=== PATIENT | female | born 1995 | race Caucasian/White ===

== ENCOUNTER 2022-03-22 17:10 | Emergency (ER) | payer OTHER, BC, MEDICAID, SELFPAY ==
[2022-03-22 17:11] VITALS: BP 144/95; PULSE 70; RESP 16; TEMP 37.2; O2SAT 95; BMI 39.4
[2022-03-22] MEDS: Lidocaine 1% (20 ml mdv) 20 ML Vial INFILT (17:37)
[2022-03-22] MEDS: Diphth,Pertuss(Acell),Tet Vac 0.5 ML Vial IM (17:38)
--- NOTE | 2022-03-22 17:50 | EDS_ITS ---
HPI History of Present Illness Chief Complaint: Laceration Informant: patient Onset/Context/Timing Onset: Today Current Severity: Mild Maximum Severity: Mild Narrative Narrative: Patient presents with a small laceration to the proximal phalanx of the right index finger. She was at work and trying to move a disc when she cut her finger. She is left-hand dominant. She is unsure of her last tetanus update. PFSH PFSH Medical History no medical history no medical history Home Medications Ruben's wort 03/22/22 [History Last Taken Unknown] Allergy/AdvReac Type Severity Reaction Status Date / Time Penicillins Allergy Hives Verified 03/22/22 17:15 Surgical History no surgical history Social History Smoking Status: Never smoker ROS ROS ED Constitutional Constitutional ED: Denies chills or fever(s) Eyes Eyes: Denies change in vision ENT ENT ED: Denies sore throat Cardiovascular Cardiovascular: Denies chest pain Respiratory/Chest Respiratory/Chest: Denies cough or dyspnea Gastrointestinal Gastrointestinal: Denies abdominal pain, nausea or vomiting Genitourinary Genitourinary ED: Denies dysuria Musculoskeletal Musculoskeletal: Reports arthralgias; Denies back pain Integumentary Reports other Details: Laceration ; Denies rash Neurologic Neurologic: Denies headache(s) or weakness Allergic/Immunologic Allergic/Immunologic ED: Denies urticaria EXAM Physical Exam Const Vital Signs: 03/22/22 17:11 Temperature 99.0 F Temperature Source Temporal Pulse Rate 70 Respiratory Rate 16 Blood Pressure 144/95 H Blood Pressure Mean 111 Pulse Ox 95 Oxygen Delivery Method Room Air Positive well nourished and well developed General Appearance ED: well developed HEENT atraumatic Eyes PERRL and EOMs intact bilaterally Neck full ROM Chest Wall inspection of chest normal and palpation of chest normal Resp normal respiratory effort and clear to auscultation bilaterally Cardio regular rhythm Rate: regular rate GI normal to inspection, nondistended, normoactive bowel sounds and non-tender Palpation: soft Back/Spine normal to inspection Extremity Extremity Narrative: 1/2 cm laceration over the proximal phalanx on the right index finger, flexor surface. Mild bleeding noted. Full range of motion of the digit with good cap refill and sensation distally. Neuro oriented x3 and no sensory deficits noted Sensorium / Orientation: alert Motor Exam: strength 5/5 throughout Skin Skin Narrative: Finger laceration as noted above. PROC Procedures Lacerations Right index finger laceration: Length: 0.2 in Depth: Sub Q Shape: Linear Prep: Shure-Clens Laceration repair: Irrigated, Lidocaine (1 cc 1% lidocaine) and Local Number of Sutures/[place]: 2 Suture Information: Ethilon, Simple and 5-0 MDM [facility] Treatment and Re-Evaluation Narrative: Tetanus update is provided. Right index finger is sutured into note for details. Workability form brought in by the [employer] is filled out. Patient may return to work today with restrictions. She is to follow-up with [facility] in 3 to 5 days. Discharge Plan Triage Chief Complaint: Laceration ED Provider: Monica Juan Dx/Rx/DC Orders Clinical Impression: Finger laceration Instructions: ED Laceration, Hand: All Closures Prescriptions: No Action Ruben's wort RF: 0 Referrals: [facility] PHYSICIANS] - 5 Days for suture removal Disposition Disposition: Home, Self Care
== END 2022-03-22 18:38 | disposition home or self-care (01) ==
LOC: ED 18:35
PROVIDERS: Emergency Provider Emergency Medicine; Visit Provider Emergency Medicine
DX: S61.219A Laceration without foreign body of unspecified finger without damage to nail, initial encounter (principal); W26.8XXA Contact with other sharp object(s), not elsewhere classified, initial encounter; Y99.0 Civilian activity done for income or pay; Z23 Encounter for immunization
CPT/HCPCS: 12001; 90471; 90715; 99282